=== PATIENT | male | born 1960 | race Caucasian/White ===

== ENCOUNTER 2016-05-20 10:32 | Emergency (ER) | payer OTHER ==
[~2016-05-20] VITALS: Ht 190.5 cm; Wt 138.1 kg
[~2016-05-20 10:32] MED LIST: ASPIR-LOW81 MG PO; METFORMIN HCL500 M1 PO; MONTELUKAST SOD10 MG PO; SPIRONOLACTONE25 MG PO; ULTRAM50 MG PO; VALSARTAN40 MG PO
[2016-05-20 11:07] LABS: HEMATOCRIT 46.8 % (38.0-50.0); MCHC 34.2 G/DL (30.0-36.0); MCV 93.6 FL (86-99); MEAN PLAT.VOLUME 8.7 uM^3 (9.0-12.4); PLATELET COUNT 251 K/uL (156-360); RBC DIS.WIDTH-CV 12.2 % (11.8-14.6); RBC DIS.WIDTH-SD 42.1 % (39-53); WHITE BLOOD COUNT 8.5 K/uL (4.1-10.2)
[2016-05-20 11:25] LABS: CHLORIDE 101 mEq/L (99-109); POTASSIUM 3.9 mEq/L (3.7-5.4); SODIUM 137 mEq/L (136-147)
[2016-05-20 11:27] LABS: GLUCOSE 100 mg/dL (70-99); TROP-I INTERPRETATION NEGATIVE; TROPONIN-I < 0.01 ng/mL (0.0-0.30)
[2016-05-20 11:28] LABS: ANION GAP 11 MEQ/L (2-14)
[2016-05-20 11:31] LABS: GFR ESTIMATE (CALCULATED) > 59 mL/min/
[2016-05-20 11:32] LABS: UREA NITROGEN (BUN) 12 mg/dL (9-23)
[2016-05-20 11:55] LABS: MAGNESIUM 1.8 mg/dL (1.3-2.7)
[2016-05-20] MEDS ORDERED: DIOVAN320 MG PO (12:34)
[2016-05-20] MEDS ORDERED: ALLERGY RELIE15.8 ML BOTH NARES (12:34)
[2016-05-20] MEDS ORDERED: VALIUM5 MG PO (13:09)
[2016-05-20] MEDS ORDERED: MOTRIN800 MG PO (13:09)
[2016-05-20 13:29] LABS: TROP-I INTERPRETATION NEGATIVE; TROPONIN-I < 0.01 ng/mL (0.0-0.30)
[2016-05-20 13:50] VITALS: BP 114/75
== END 2016-05-20 14:16 | disposition left against medical advice (07) ==
LOC: EME 10:32
PROVIDERS: Physician Assistant
DX: R07.9 Chest pain, unspecified (principal); M62.838 Other muscle spasm; M54.12 Radiculopathy, cervical region; I10 Essential (primary) hypertension; E11.9 Type 2 diabetes mellitus without complications; Z79.84 Long term (current) use of oral hypoglycemic drugs; Z79.82 Long term (current) use of aspirin; Z82.49 Family history of ischemic heart disease and other diseases of the circulatory system
CPT/HCPCS: 71020; 80048; 83735; 84484; 85027; 93005; 99281; 99285; J1885; J2270

== ENCOUNTER → 2017-02-26 | Outpatient (CLI) | payer OTHER ==
[~2017-02-26] MED LIST changes: +ALLERGY RELIE15.8 ML BOTH NARES; +DIOVAN160 MG PO; +MOTRIN800 MG PO; +VALIUM5 MG PO; +ZYRTEC10 M3 PO
== END | disposition home or self-care (01) ==
LOC: CDC 15:24
DX: Z01.810 Encounter for preprocedural cardiovascular examination (principal); I45.4 Nonspecific intraventricular block; R94.31 Abnormal electrocardiogram [ECG] [EKG]
CPT/HCPCS: 93000

== ENCOUNTER 2017-03-07 08:15 | Day surgery (SDC) | payer OTHER ==
[~2017-03-07] VITALS: Ht 190.5 cm; Wt 143.2 kg
[2017-03-07 08:57] VITALS: BP 161/79
[2017-03-07 09:07] LABS: ALBUMIN 4.2 g/dL (3.2-4.8); CHLORIDE 106 mEq/L (99-109); POTASSIUM 3.8 mEq/L (3.7-5.4); SODIUM 139 mEq/L (136-147)
[2017-03-07 09:09] LABS: GLUCOSE 111 mg/dL (70-99); TOTAL PROTEIN 6.8 g/dL (6.4-8.3)
[2017-03-07 09:11] LABS: TOTAL BILIRUBIN 1.5 mg/dL (0.0-1.0)
[2017-03-07 09:13] LABS: ALKALINE PHOSPHATASE 69 IU/L (3-129); CREATININE 0.8 mg/dL (0.6-1.3); GFR ESTIMATE (CALCULATED) > 59 mL/min/ (58.99-99999)
[2017-03-07 09:14] LABS: AST (GOT) 31 IU/L (2-34); UREA NITROGEN (BUN) 11 mg/dL (9-23)
[2017-03-07 09:15] LABS: DIRECT BILIRUBIN 0.5 mg/dL (0.0-0.3)
[2017-03-07 09:16] LABS: ALT (GPT) 28 IU/L (3-49)
[2017-03-07] MEDS ORDERED: PERCOCET 5/31 TABLET PO (12:02)
[2017-03-07] MEDS ORDERED: COLACE100 MG PO (12:02)
[2017-03-07 12:59] VITALS: BP 122/64
[2017-03-07 13:53] VITALS: BP 120/63
== END 2017-03-07 13:58 | disposition home or self-care (01) ==
LOC: SDC 08:15
PROVIDERS: Surgery
PROC: 0FT44ZZ Resection of Gallbladder, Percutaneous Endoscopic Approach (ICD-10-PCS; principal; 2017-03-07)
DX: K80.10 Calculus of gallbladder with chronic cholecystitis without obstruction (principal); I10 Essential (primary) hypertension; E11.9 Type 2 diabetes mellitus without complications; G47.33 Obstructive sleep apnea (adult) (pediatric); J30.9 Allergic rhinitis, unspecified; E66.9 Obesity, unspecified; Z68.41 Body mass index [BMI] 40.0-44.9, adult; R05 Cough; Z79.82 Long term (current) use of aspirin; Z79.84 Long term (current) use of oral hypoglycemic drugs; Z83.3 Family history of diabetes mellitus; Z82.49 Family history of ischemic heart disease and other diseases of the circulatory system; Z84.1 Family history of disorders of kidney and ureter; Z80.8 Family history of malignant neoplasm of other organs or systems
CPT/HCPCS: 80053; 80076; 82948; 88304; J0330; J0690; J1170; J2250; J2405; J2710; J3010